=== PATIENT | female | born 1955 | race Asian ===

== ENCOUNTER 2021-12-06 14:08 | Inpatient (IN) | payer MEDICARE ==
[~2021-12-06] VITALS: Ht 154.9 cm; Wt 43.1 kg
[2021-12-06 14:36] LABS: ABG HCO3 24.9 mmol/L; ABG PCO2 78.9 mmHg (35.0-45.0); ABG PH 7.117 (7.350-7.450); ABG PO2 71.6 mmHg (75.0-100.0); ABG SITE RIGHT RADIAL; COHb 1.7 % (0.5-1.5); VENT MODE Nasal Cannula
[2021-12-06 15:17] LABS: HEMATOCRIT 31.4 % (31.2-41.9); MEAN CORPUSCULAR HEMOGLOBIN 18.6 uug (24.7-32.8)
[2021-12-06 15:21] LABS: CARBON DIOXIDE 28 mmol/L (21-32); CHLORIDE 101 mmol/L (98-107); GLUCOSE 110 mg/dL (74-106); POTASSIUM 5.3 mmol/L (3.5-5.1); UREA NITROGEN, BLOOD 31 mg/dL (7-18)
[2021-12-06 15:26] LABS: PLATELET COUNT (AUTO) 29 K/uL (179-408)
[2021-12-06 15:34] LABS: ALANINE AMINOTRANSFERASE < 6 U/L (14-59); ALKALINE PHOSPHATASE 129 U/L (50-136); ASPARTATE AMINOTRANSFERASE 8 U/L (15-37); BILIRUBIN,DIRECT 0.2 mg/dL (0.0-0.2); BILIRUBIN,TOTAL 0.7 mg/dL (0.2-1.0); TOTAL PROTEIN, SERUM 7.1 g/dL (6.4-8.2)
--- NOTE | 2021-12-06 15:40 | NUR ---
PT SEEN AND EVALUATED BY DR DAMON. ATTEMPTS TO START IV UNSUCCESSFUL, RNSUPERVISOR CALLED REQUEST FOR PICC LINE INSERTION.
[2021-12-06 15:53] LABS: BAND % (MANUAL) 1 % (0-10); EOSINOPHILS % (MANUAL) 2 % (0-8); LYMPHOCYTES % (MANUAL) 35 % (20-40); MONOCYTES % (MANUAL) 2 % (2-10); NEUTROPHILS % (MANUAL) 60 % (42-75)
[2021-12-06 15:55] LABS: ABG BASE EXCESS -5.2 mmol/L; ABG HCO3 23.7 mmol/L; ABG PH 7.166 (7.350-7.450); ABG PO2 81.7 mmHg (75.0-100.0); ABG SITE RIGHT RADIAL; ABG TOTAL HEMOGLOBIN 8.8 G/dL (12.0-16.0); COHb 1.7 % (0.5-1.5); O2Hb 92.9 % (94.0-97.0)
--- NOTE | 2021-12-06 16:56 | NUR ---
PICC LINE NURSE HERE- PT DEEMED NOT A CANDIDATE FOR PICC LINE - AVFISTULAS ON BOTH ARMS- THE LT CURRENTLY IN USE-PICC RN ATTEMPTING TO START AN IV LINE INSTENT.
[2021-12-06] MEDS ORDERED: ONDANSETRON 4 MG/2 ML VIAL IV PRN (17:00)
[2021-12-06] MEDS ORDERED: ACETAMINOPHEN 325 MG TABLET PO PRN (17:00)
[2021-12-06] MEDS ORDERED: HEPARIN SODIUM,PORCINE 5,000 UNITS/ML VIAL SQ SCH (17:00)
[2021-12-06] MEDS ORDERED: hydrALAZINE HCL 20 MG/1 ML VIAL IV PRN (17:00)
[2021-12-06] MEDS ORDERED: MORPHINE SULFATE 2 MG/1 ML DISP.SYRIN IV PRN (17:00)
[2021-12-06] MEDS ORDERED: ALBUTEROL SULFATE 8 GM HFA.AER.AD IH PRN (17:00)
[2021-12-06 17:39] LABS: ABG HCO3 23.2 mmol/L; ABG PCO2 61.5 mmHg (35.0-45.0); ABG PH 7.195 (7.350-7.450); ABG PO2 84.3 mmHg (75.0-100.0); ABG SITE RIGHT RADIAL; ABG TOTAL HEMOGLOBIN 8.9 G/dL (12.0-16.0); COHb 1.4 % (0.5-1.5); MetHb 1.1 % (0.0-1.5); O2Hb 93.9 % (94.0-97.0)
[2021-12-06] MEDS ORDERED: ALBUTEROL SULFATE 2.5 MG/3 ML NEBU NEB PRN (18:00)
[2021-12-06] MEDS ORDERED: FAMOTIDINE. 20 MG/2 ML VIAL IV ONE ×3 (18:00→21:31)
--- NOTE | 2021-12-06 18:07 | NUR ---
DR WILDE IN TO SEE PATIENT - BIPAP INITIATED. ABGS DONE.
--- NOTE | 2021-12-06 18:17 | NUR ---
DR DAMON SPOKE WITH DR FROST FOR NEPHRO CONSULTATION. ADMITTING PHYSICIAN IS DR WELCH, DR WILDE FOR PULMONARY CONSULT.
--- NOTE | 2021-12-06 20:04 | NUR ---
Dialysis nurse into do dialysis.
[2021-12-06] MEDS ORDERED: PANT40TA2 PO (20:11)
[2021-12-06] MEDS ORDERED: FOLI1TAB94 PO (20:11)
[2021-12-06] MEDS ORDERED: CINA30TA2 PO (20:11)
[2021-12-06] MEDS ORDERED: INDO-12 PO (20:11)
[2021-12-06] MEDS ORDERED: PRAV80TA21 PO (20:11)
[2021-12-06] MEDS ORDERED: CALC667T2 PO (20:11)
[2021-12-06] MEDS ORDERED: CARI350T PO (20:11)
[2021-12-06] MEDS ORDERED: PRED2.5T PO (20:11)
[2021-12-06] MEDS ORDERED: ONDA4TAB5 PO ×2 (20:11)
[2021-12-06] MEDS ORDERED: AMLO-212 PO (20:11)
[2021-12-06] MEDS ORDERED: EPOE1000 INJ (20:11)
[2021-12-06] MEDS ORDERED: ASCO500C18 PO (20:11)
[2021-12-06] MEDS ORDERED: PARI1CAP IV (20:11)
[2021-12-06] MEDS ORDERED: HYDR-3972 PO (20:11)
[2021-12-06] MEDS ORDERED: DIAZ5TAB4 PO (20:11)
[2021-12-06] MEDS ORDERED: DEFE500T PO (20:11)
[2021-12-06] MEDS ORDERED: LOSA50TA3 PO (20:11)
[2021-12-06] MEDS ORDERED: FEBU40TA PO (20:11)
[2021-12-06] MEDS ORDERED: LEVO75TA PO (20:11)
[2021-12-06] MEDS ORDERED: GABA100C PO (20:11)
[2021-12-06] MEDS ORDERED: VITAMIN D3 PO (20:11)
[2021-12-06] MEDS ORDERED: LIDO30CR TP (20:11)
[2021-12-06] MEDS ORDERED: CARV12.5 PO (20:11)
[2021-12-06] MEDS ORDERED: ALBUMIN HUMAN 25% 50 ML ONE (21:38)
[2021-12-06] MEDS ORDERED: MIDODRINE HCL 5 MG TABLET ONE (21:38)
[2021-12-06] MEDS: ALBUMIN HUMAN 25% 100 ML IV PRN (22:30)
--- NOTE | 2021-12-06 22:42 | NUR ---
Dialysis nurse removed 1liter of fliud.
--- NOTE | 2021-12-06 23:20 | NUR ---
Dr Monae into eval patient.
[2021-12-06] MEDS ORDERED: DEXTROSE 50% 50 ML DISP.SYRIN IV PRN (23:30)
[2021-12-06] MEDS ORDERED: INSULIN REGULAR, HUMAN 300 UNITS/3 ML VIAL SQ PRN (23:30)
[2021-12-06] MEDS ORDERED: INSULIN REGULAR, HUMAN 300 UNIT/3 ML VIAL SQ PRN (23:30)
[2021-12-06] MEDS ORDERED: LIDOCAINE/PRILOCAINE 5 GM CREAM.GM. TP SCH (23:30)
[2021-12-06] MEDS ORDERED: CARISOPRODOL 350 MG TABLET PO PRN (23:30)
[2021-12-06] MEDS ORDERED: PIPERACILLIN SODIUM/TAZOBACTAM 4.5 G in IV DEXTROSE 5% 50 ML IV ONE (23:45)
[2021-12-06 23:51] LABS: ABG PCO2 49.1 mmHg (35.0-45.0); ABG PH 7.248 (7.350-7.450); ABG PO2 92.1 mmHg (75.0-100.0); ABG SITE RIGHT BRACHIAL; ABG TOTAL HEMOGLOBIN 8.3 G/dL (12.0-16.0); COHb 2.1 % (0.5-1.5); O2Hb 94.7 % (94.0-97.0); VENT MODE BIPAP
[2021-12-06] MEDS: BLOOD SUGAR DIAGNOSTIC 1 EACH STRIP VI SCH (23:52)
[2021-12-06] MEDS ORDERED: PIPERACILLIN/TAZO 4.5 GM VIAL IV ONE (23:53)
[2021-12-07] VITALS (14 sets, daily range): BP systolic 92–128; BP diastolic 50–68
--- NOTE | 2021-12-07 02:07 | NUR ---
PATIENT HAS BEEN ON BI/PAP WITH FULL MASK, MOST OF THE TIME IN ER NOW IN BED # 5 WITH DIALYSIS, WITH CURRENT SETTINGS, 02/26, RR22, FIO2 @ 35%, WITH ABG, THEN REPEAT IN AM BEFORE 0600, PT SLIGHTLY ACIDOTIC, OXYGENATION GOOD, WILL MONITOR CLOSELY .Jesus PEÑA RCP Addendum: 12/07/21 at 0209 by BRUCE PEÑA RT Amended: Links added.
[2021-12-07 05:46] LABS: HEMATOCRIT 28.4 % (31.2-41.9); MEAN CORPUSCULAR VOLUME 69.6 fL (75.5-95.3)
[2021-12-07 05:50] LABS: MEAN CORPUSCULAR HEMOGLOBIN 18.9 uug (24.7-32.8)
[2021-12-07 05:54] LABS: PLATELET COUNT (AUTO) 17 K/uL (179-408)
[2021-12-07 05:58] LABS: ALANINE AMINOTRANSFERASE < 6 U/L (14-59); ALKALINE PHOSPHATASE 114 U/L (50-136); ASPARTATE AMINOTRANSFERASE 9 U/L (15-37); BILIRUBIN,TOTAL 0.7 mg/dL (0.2-1.0); CARBON DIOXIDE 27 mmol/L (21-32); CHLORIDE 99 mmol/L (98-107); CREATININE 3.3 mg/dL (0.6-1.3); GLUCOSE 72 mg/dL (74-106); PHOSPHOROUS 4.1 mg/dL (2.5-4.9); TOTAL PROTEIN, SERUM 6.4 g/dL (6.4-8.2); UREA NITROGEN, BLOOD 25 mg/dL (7-18)
[2021-12-07 07:10] LABS: ABG BASE EXCESS -4.4 mmol/L; ABG HCO3 22.6 mmol/L; ABG PCO2 51.9 mmHg (35.0-45.0); ABG PH 7.257 (7.350-7.450); ABG PO2 95.9 mmHg (75.0-100.0); ABG SITE RIGHT BRACHIAL; ABG TOTAL HEMOGLOBIN 8.4 G/dL (12.0-16.0); MetHb 0.9 % (0.0-1.5); O2Hb 95.1 % (94.0-97.0); VENT MODE BIPAP
[2021-12-07] MEDS: BLOOD SUGAR DIAGNOSTIC 1 EACH STRIP VI SCH ×4 (07:37→21:15)
[2021-12-07] MEDS: CALCIUM ACETATE 667 MG CAP/TAB PO SCH ×3 (08:00→18:11)
--- NOTE | 2021-12-07 08:00 | NUR ---
ASSUME CARE AND REPORT OBTAIN FROM OUTGOING RN. VSS, TRANSFER FROM BED 5 ED TO ED 1 A. CONT ON BIPAP AT 35% FIO2, 12/6 AND RATE 22, SAT 100%
[2021-12-07] MEDS ORDERED: PANTOPRAZOLE SODIUM 40 MG TABLET.DR PO ONE (08:35)
[2021-12-07] MEDS ORDERED: LEVOTHYROXINE SODIUM 75 MCG TABLET ONE (08:35)
[2021-12-07] MEDS ORDERED: DEXTROSE 50% 50 ML DISP.SYRIN ONE (08:36)
[2021-12-07] MEDS ORDERED: CARVEDILOL 12.5 MG TABLET ONE (08:37)
[2021-12-07] MEDS: PANTOPRAZOLE SODIUM 40 MG TABLET.DR PO SCH (08:42)
[2021-12-07] MEDS: CARVEDILOL 12.5 MG TABLET PO SCH ×2 (08:43→17:00)
[2021-12-07] MEDS: LEVOTHYROXINE SODIUM 75 MCG TABLET PO SCH (08:43)
--- NOTE | 2021-12-07 08:45 | NUR ---
TO WAIT FOR RN TO CALL RADIOLOGY DEPARTMENT VIA RN GRICEL MAY BE EVENING TODAY PER RN
[2021-12-07] MEDS: INDOMETHACIN 25 MG CAPSULE PO SCH (09:00)
[2021-12-07] MEDS ORDERED: DEFERASIROX PO SCH (09:00)
[2021-12-07] MEDS: CHOLECALCIFEROL 1,000 UNIT TABLET PO SCH (09:00)
[2021-12-07] MEDS: FOLIC ACID 1 MG TABLET PO SCH (09:00)
[2021-12-07] MEDS: AMLODIPINE 5 MG TABLET PO SCH ×2 (09:00→20:58)
[2021-12-07] MEDS ORDERED: MIDODRINE HCL 5 MG TABLET PO SCH (09:00)
[2021-12-07] MEDS: GABAPENTIN 100 MG CAPSULE PO SCH ×3 (09:00→17:00)
[2021-12-07] MEDS ORDERED: FEBUXOSTAT PO SCH (09:00)
[2021-12-07] MEDS: LOSARTAN POTASSIUM 50 MG TABLET PO SCH ×2 (09:00→17:00)
[2021-12-07] MEDS: ASCORBIC ACID 500 MG TABLET PO SCH (09:00)
[2021-12-07] MEDS: PIPERACILLIN/TAZO 2.25 G in IV DEXTROSE 5% 50 ML IV SCH ×3 (09:34→20:57)
[2021-12-07 09:42] LABS: FERRITIN 3042 ng/mL (8-252)
[2021-12-07] MEDS: CINACALCET HCL 30 MG TABLET PO SCH (09:42)
[2021-12-07] MEDS: predniSONE 5 MG TABLET PO SCH (09:42)
[2021-12-07 10:59] LABS: IRON, SERUM 74 ug/dL (50-175)
--- NOTE | 2021-12-07 12:41 | NUR ---
PCP CALLED REGARDING ABN LABS-PLT 17,NO NEW ORDERS GIVEN. PER PCP ALREADY REVIEWED ABN LABS.DIALYSIS IN PROGRESS, SHEREE FAIRLY.
--- NOTE | 2021-12-07 13:42 | NUR ---
HEMODIALYSIS COMPLETED, PER BICYCLE MECHANIC REMOVED 600 ML.
--- NOTE | 2021-12-07 13:46 | NUR ---
GABAPENTIN AND PHOS NOT ADMINISTER, PT ON BIPAP AND DROWSY.
[2021-12-07] MEDS: SOD FERRIC GLUC COMPLX/SUCROSE 125 MG in IV NORMAL SALINE 100 ML IV SCH (13:49)
[2021-12-07] MEDS ORDERED: PARI2VIA IV (13:53)
[2021-12-07] MEDS ORDERED: PIPERACILLIN SODIUM/TAZOBACTAM 4.5 G in IV DEXTROSE 5% 50 ML IV SCH (14:00)
--- NOTE | 2021-12-07 14:20 | NUR ---
ATTEMPTED TO PLACE PT ON 3LPM NC AND DC FROM BIPAP. PT IS DOING WELL EVEN POST 3 HOURS, SATURATING 100%.BIPAP WILL STILL BE ON STAND BY FOR BIPAP.
--- NOTE | 2021-12-07 14:21 | NUR ---
OFF BIPAP AND ON O2 AT 3.5 L/MIN, SAT 100%.NO DISTRESS NOTED, HR 73, SAT 100%, B/P 97/57.A, A, AND O X4. ORAL CARE RENDER.
[2021-12-07] MEDS: FLUTICASONE/VILANTEROL 1 EACH BLST.W.DEV INH SCH (15:38)
--- NOTE | 2021-12-07 17:49 | NUR ---
AT [address] SCAN OF CHEST AND HEAD; POC FS 66. A,A,AND O X 4 ASYMPTOMATIC. FED SNACK AND REPEAT POC FS 116, WNL.
[2021-12-07] MEDS ORDERED: GABAPENTIN 100 MG CAPSULE ONE (18:05)
--- NOTE | 2021-12-07 19:30 | NUR ---
REPORTED OFF TO INCOMING RN ASSUMING CARE. [facility] CALLED AND NO BED AVAIL.PT DOWN GRADED TO [facility].
--- NOTE | 2021-12-07 20:00 | NUR ---
report given to MARVIN METCALF using sbarq ,patient went to room 319 , went with all belongings .v/s wnl .patient aaox4, verbally responsive .moved via gurney with 2 RN .
--- NOTE | 2021-12-07 20:25 | NUR ---
Patient transferred from [facility] to [facility] status. Admission documentation done during transfer to [facility] unit. Patient AAOX4. In no apparent distress. Denies any SOB at rest, but with mild SOB during exertion. NSR on tele with HR of 62/min. On O2 at 3LPM via NC in place. O2 sat at 99% at this time. Complain of back pain, but tolerable at this time per pt. IV site on right FA sensitive to touch. Started new IV on the same FA #20G. Dialysis site on left upper arm. Old dialysis site on right upper arm. Routine admission care done. Plan of care initiated. Needs assessed and attended to. Safety measure initiated and call light within reached. Continue to monitor.
[2021-12-07] MEDS: ATORVASTATIN 20 MG TABLET PO SCH (20:58)
[2021-12-08 00:32] VITALS: BP 93/52
[2021-12-08] MEDS: PIPERACILLIN/TAZO 2.25 G in IV DEXTROSE 5% 50 ML IV SCH ×4 (02:11→20:06)
[2021-12-08 04:41] VITALS: BP 92/47
--- NOTE | 2021-12-08 05:27 | NUR ---
AAOX4. In no acute distress. Denies any further pain or SOB. at rest, but with mild SOB during exertion. NSR on tele with HR of 77/min. O2 at 3LPM via NC in place. O2 sat at 99%. IV site on right FA remains intact and patent. No adverse reaction noted from IV antibiotic. Needs attended to and met. Safety measure maintained and call light within reached.
[2021-12-08] MEDS: PANTOPRAZOLE SODIUM 40 MG TABLET.DR PO SCH (06:09)
[2021-12-08] MEDS: LEVOTHYROXINE SODIUM 75 MCG TABLET PO SCH (06:09)
[2021-12-08] MEDS: BLOOD SUGAR DIAGNOSTIC 1 EACH STRIP VI SCH ×4 (06:54→21:09)
[2021-12-08 08:21] LABS: CARBON DIOXIDE 30 mmol/L (21-32); CHLORIDE 97 mmol/L (98-107); CREATININE 3.1 mg/dL (0.6-1.3); GLUCOSE 89 mg/dL (74-106); MAGNESIUM 1.8 mg/dL (1.8-2.4); PHOSPHOROUS 4.1 mg/dL (2.5-4.9); POTASSIUM 4.3 mmol/L (3.5-5.1); UREA NITROGEN, BLOOD 22 mg/dL (7-18)
[2021-12-08] MEDS: FOLIC ACID 1 MG TABLET PO SCH (08:22)
[2021-12-08] MEDS: GABAPENTIN 100 MG CAPSULE PO SCH ×3 (08:22→16:45)
[2021-12-08] MEDS: CALCIUM ACETATE 667 MG CAP/TAB PO SCH ×3 (08:22→16:45)
[2021-12-08] MEDS: CHOLECALCIFEROL 1,000 UNIT TABLET PO SCH (08:23)
[2021-12-08] MEDS: ASCORBIC ACID 500 MG TABLET PO SCH (08:23)
[2021-12-08] MEDS: predniSONE 5 MG TABLET PO SCH (08:24)
[2021-12-08] MEDS: CINACALCET HCL 30 MG TABLET PO SCH (08:24)
[2021-12-08 08:25] VITALS: BP 111/54
[2021-12-08] MEDS: FLUTICASONE/VILANTEROL 1 EACH BLST.W.DEV INH SCH (08:26)
[2021-12-08 08:32] LABS: MEAN CORPUSCULAR HEMOGLOBIN 19.3 uug (24.7-32.8); MEAN CORPUSCULAR VOLUME 67.3 fL (75.5-95.3)
[2021-12-08 08:42] LABS: PLATELET COUNT (AUTO) 26 K/uL (179-408)
[2021-12-08] MEDS: LOSARTAN POTASSIUM 50 MG TABLET PO SCH ×2 (09:00→16:46)
[2021-12-08] MEDS: AMLODIPINE 5 MG TABLET PO SCH ×2 (09:00→20:10)
[2021-12-08] MEDS: CARVEDILOL 12.5 MG TABLET PO SCH ×2 (09:00→16:46)
[2021-12-08] MEDS: INDOMETHACIN 25 MG CAPSULE PO SCH (09:00)
[2021-12-08 09:42] LABS: ALANINE AMINOTRANSFERASE < 6 U/L (14-59); ALKALINE PHOSPHATASE 111 U/L (50-136); ASPARTATE AMINOTRANSFERASE 9 U/L (15-37); BILIRUBIN,DIRECT 0.1 mg/dL (0.0-0.2); BILIRUBIN,TOTAL 0.6 mg/dL (0.2-1.0); TOTAL PROTEIN, SERUM 6.5 g/dL (6.4-8.2)
[2021-12-08 10:06] LABS: HEPATITIS B SURFACE AG Negative (Negative)
--- NOTE | 2021-12-08 10:32 | NUR ---
HEMODIALYSIS STARTED AT BED SIDE WITH ALBUMIN DUE TO LOW BP 89/50
[2021-12-08] MEDS ORDERED: LIDOCAINE/PRILOCAINE 5 GM CREAM.GM. TP ONE (11:00)
[2021-12-08] MEDS: ALBUMIN HUMAN 25% 100 ML IV PRN (11:17)
[2021-12-08 12:08] LABS: ABG HCO3 28.6 mmol/L; ABG PCO2 56.7 mmHg (35.0-45.0); ABG PO2 125.4 mmHg (75.0-100.0); ABG SITE RIGHT BRACHIAL; ABG TOTAL HEMOGLOBIN 7.6 G/dL (12.0-16.0); COHb 1.4 % (0.5-1.5); O2Hb 96.7 % (94.0-97.0); VENT MODE Nasal Cannula
[2021-12-08 12:43] VITALS: BP 108/61
--- NOTE | 2021-12-08 13:27 | NUR ---
1300 MEDICATION NOT GIVEN, PATIENT REFUSED. PATIENT ON HEMODIALYSIS
[2021-12-08] MEDS ORDERED: EPOETIN ALFA-EPBX 10,000 UNIT/ML VIAL SQ SCH ×2 (14:00→17:00)
[2021-12-08] MEDS: SOD FERRIC GLUC COMPLX/SUCROSE 125 MG in IV NORMAL SALINE 100 ML IV SCH (14:22)
--- NOTE | 2021-12-08 14:59 | NUR ---
HEMODIALYSIS COMPLETED REMOVED 1L OF FLUID
[2021-12-08] MEDS ORDERED: ALBUMIN HUMAN 25% 100 ML IV PRN (15:30)
[2021-12-08 16:34] VITALS: BP 116/57
[2021-12-08] MEDS: ATORVASTATIN 20 MG TABLET PO SCH (20:07)
[2021-12-08 20:52] VITALS: BP 97/54
[2021-12-08] MEDS ORDERED: HYDROCODONE/APAP 5-325MG TABLET PO PRN (21:00)
[2021-12-08] MEDS ORDERED: HYDROCODONE/APAP 10-325 MG TABLET PO PRN (21:30)
[2021-12-09] MEDS: PIPERACILLIN/TAZO 2.25 G in IV DEXTROSE 5% 50 ML IV SCH ×2 (02:13→08:55)
[2021-12-09 04:25] VITALS: BP 110/61
[2021-12-09] MEDS: PANTOPRAZOLE SODIUM 40 MG TABLET.DR PO SCH (06:17)
[2021-12-09] MEDS: LEVOTHYROXINE SODIUM 75 MCG TABLET PO SCH (06:19)
[2021-12-09] MEDS: BLOOD SUGAR DIAGNOSTIC 1 EACH STRIP VI SCH ×2 (06:39→11:26)
[2021-12-09 07:02] LABS: HEMATOCRIT 22.9 % (31.2-41.9); MEAN CORPUSCULAR HEMOGLOBIN 18.9 uug (24.7-32.8); MEAN CORPUSCULAR VOLUME 65.9 fL (75.5-95.3)
[2021-12-09 07:08] LABS: PLATELET COUNT (AUTO) 27 K/uL (179-408)
[2021-12-09 07:17] LABS: CREATININE 2.8 mg/dL (0.6-1.3); MAGNESIUM 1.7 mg/dL (1.8-2.4); PHOSPHOROUS 3.3 mg/dL (2.5-4.9); POTASSIUM 3.6 mmol/L (3.5-5.1)
[2021-12-09] MEDS: CARVEDILOL 12.5 MG TABLET PO SCH (08:11)
[2021-12-09] MEDS: AMLODIPINE 5 MG TABLET PO SCH (08:12)
[2021-12-09] MEDS: CALCIUM ACETATE 667 MG CAP/TAB PO SCH (08:12)
[2021-12-09] MEDS: GABAPENTIN 100 MG CAPSULE PO SCH (08:12)
[2021-12-09] MEDS: predniSONE 5 MG TABLET PO SCH (08:12)
--- NOTE | 2021-12-09 08:12 | NUR ---
pt is getting up [facility] try to explain her about the diabetic diet pt said she is not diabetic sinces 66 years pt is refusing to take the po medication explain her one by one what medication is that and is for what she refused some of the medication and same time pt is on the phone with merline taking bad about the nurses and screaming on the nurse made aware
[2021-12-09 08:27] VITALS: BP 131/69
[2021-12-09] MEDS: INDOMETHACIN 25 MG CAPSULE PO SCH (08:27)
[2021-12-09] MEDS: CHOLECALCIFEROL 1,000 UNIT TABLET PO SCH (08:27)
[2021-12-09] MEDS: CINACALCET HCL 30 MG TABLET PO SCH (08:27)
[2021-12-09] MEDS: FOLIC ACID 1 MG TABLET PO SCH (08:27)
[2021-12-09] MEDS: LOSARTAN POTASSIUM 50 MG TABLET PO SCH (08:27)
[2021-12-09] MEDS: FLUTICASONE/VILANTEROL 1 EACH BLST.W.DEV INH SCH (08:27)
[2021-12-09] MEDS: ASCORBIC ACID 500 MG TABLET PO SCH (08:27)
--- NOTE | 2021-12-09 08:40 | NUR ---
Pt refused ABG, spk w/, he is aware pt refused.. SpO2 97% on 2 Lpm nasal cannula..
[2021-12-09] MEDS ORDERED: NEPRO (VANILLA) 237 ML CAN PO SCH (09:00)
[2021-12-09] MEDS ORDERED: LEVO750T46 PO (09:36)
[2021-12-09 09:49] LABS: BILIRUBIN,TOTAL 0.7 mg/dL (0.2-1.0); CREATININE 2.9 mg/dL (0.6-1.3); POTASSIUM 3.6 mmol/L (3.5-5.1); TOTAL PROTEIN, SERUM 6.1 g/dL (6.4-8.2)
--- NOTE | 2021-12-09 09:50 | NUR ---
dc instruction given to the pt and ask her about the oxygen using at home pt said she have o2 at home and ask her who is coming to pick her up she said her cousin is coming to pick her up and ask the pt she is bringing the o2 ,pt called her back and told the family to bring the o2
[2021-12-09] MEDS ORDERED: MAGNESIUM OXIDE 400 MG TABLET PO ONE (10:30)
--- NOTE | 2021-12-09 11:55 | NUR ---
send the pt on wheel chair with the o2 to down stair with able seaman to dc the pt ,pt left the facility via private car with the family in stable condition
[2021-12-09 19:24] LABS: BAND % (MANUAL) 1 % (0-10); EOSINOPHILS % (MANUAL) 4 % (0-8); LYMPHOCYTES % (MANUAL) 38 % (20-40); MONOCYTES % (MANUAL) 5 % (2-10); NEUTROPHILS % (MANUAL) 52 % (42-75)
== END 2021-12-09 11:45 | disposition home or self-care (01) | DRG 291 ==
LOC: ER 14:08 → TRANSITION 17:49 → DOU3 12-07 17:45 → TELE-TD3 12-07 20:25 → TELE3 12-08 10:25 → MEDSURG3 12-08 11:45
PROVIDERS: ADMIT Internal Medicine; ATTEND Internal Medicine
PROC: 5A09457 Assistance with Respiratory Ventilation, 24-96 Consecutive Hours, Continuous Positive Airway Pressure (ICD-10-PCS; principal; 2021-12-06)
PROC: 5A1D70Z Performance of Urinary Filtration, Intermittent, Less than 6 Hours Per Day (ICD-10-PCS; 2021-12-06)
DX: I13.2 Hypertensive heart and chronic kidney disease with heart failure and with stage 5 chronic kidney disease, or end stage renal disease (principal); G93.41 Metabolic encephalopathy; J96.01 Acute respiratory failure with hypoxia; I50.33 Acute on chronic diastolic (congestive) heart failure; N18.6 End stage renal disease; J96.02 Acute respiratory failure with hypercapnia; R64 Cachexia; E87.1 Hypo-osmolality and hyponatremia; E44.0 Moderate protein-calorie malnutrition; Z68.1 Body mass index [BMI] 19.9 or less, adult; Z99.2 Dependence on renal dialysis; D50.9 Iron deficiency anemia, unspecified; D69.6 Thrombocytopenia, unspecified; E03.9 Hypothyroidism, unspecified; E87.5 Hyperkalemia; E88.09 Other disorders of plasma-protein metabolism, not elsewhere classified; D63.8 Anemia in other chronic diseases classified elsewhere; I27.20 Pulmonary hypertension, unspecified; E11.22 Type 2 diabetes mellitus with diabetic chronic kidney disease; Z20.822 Contact with and (suspected) exposure to COVID-19
CPT/HCPCS: 36415; 36600; 70030-TC; 70450; 71045; 71250; 83550; 83735; 84100; 84484; 85025; 85730; 86706; 87340; 90937; 93005; 93307; 94660; A4663; G0378; J0885; J1815; J2270; J2543; J2916; J3490; J7040; J7512; P9047